=== PATIENT | female | born 1995 | race Caucasian/White ===

== ENCOUNTER 2025-06-04 07:58 | Inpatient (IN) ==
[2025-06-04] MEDS ORDERED: LIDOCAINE 1% LOCAL 20 ML VIAL INFIL PRN (09:03)
[2025-06-04] MEDS ORDERED: OXYTOCIN 30 UNITS/NSS 30 UNITS/500 ML BAG IV PRN ×2 (09:03)
[2025-06-04 09:31] LABS: Hematocrit (blood only) 26.6 % (37.0-47.0); Hemoglobin 9.2 g/dL (12.0-16.0); Mean Corpuscular Hemoglobin 29.1 pg (25.0-34.0); Mean Corpuscular Volume 84.2 fL (80.0-100.0); Platelet Count 202 K/uL (130-400); RDW Standard Deviation 42.3 fL (36.4-46.3); Red Blood Count 3.16 M/uL (4.20-5.40); White Blood Count 10.54 K/ul (4.8-10.8)
--- NOTE | 2025-06-04 09:43 | History & Physical Report ---
Date of Service June 04, 2025 Assessment & Plan (1) Encounter for induction of labor: Plan: Pt is a 29yo at 39w 4d presenting for induction of labor Routine labs ordered Pitocin ordered Epidural placement on demand Monitor tracing Expectant management for labor, anticipate GBS neg Rh negative, Rubella immune Admission and Anticipated Discharge Date Admission Date: June 04, 2025 History of Present Illness Primary Care Provider: NO PCP Pt is a 29yo female currently at 39w 4d with an HARVINDER 06/07/25 who is here for induction of labor. Adequate movement; not feeling contractions, no fluid loss; no bloody show h/o of meth use; last use in second trimester as per pt h/o of marijuana use; last use yesterday as per pt, reapplying for medical M[facility] card Had regular appointments with OB. OB Labs: Blood Type O Negative 04/05/25 Antibody Screen NEGATIVE 04/19/25 Hgb 10.3 g/dl (12.0-16.0) L 04/05/25 Hct 31.1 % (37.0-47.0) L 04/05/25 MCV 90.7 fL (80.0-100.0) 04/05/25 Plt Count 228 K/uL (130-400) 04/05/25 Rubella IgG Antibody Immune (Immune) 04/05/25 Treponema pallidum Ab Negative (Negative) 04/05/25 Hep Bs Antigen Negative (Negative) 04/05/25 Hepatitis C Antibody Negative (Negative) 04/05/25 HIV 1&2 Ab/P24 Ag 4thGn Negative (Negative) 04/05/25 Glucose 1 Hr 50 gm 99 mg/dl (70-130) 04/19/25 Chlamydia trachomatis RNA Not Detected (NotDetected) 04/05/25 Neisseria gonorrhoeae RNA Not Detected (NotDetected) 04/05/25 GBS neg Review of Systems : Denies fever, chills, headache, vision changes, shortness of breath, difficulty breathing, chest pain, palpitations, RUQ/epigastric pain, dysuria Allergies Allergy/AdvReac Type Severity Reaction Status Date / Time No Known Allergies Allergy Unverified 06/03/25 16:17 Home Medications Medication Instructions Recorded Confirmed Type prenat.vits,luisa,gky-tbrk-shjas tab PO DAILY 04/01/25 06/03/25 History Patient History Medical History (Updated 06/04/25 @ 09:48 by Abdullahi Pedraza MD) 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 Marijuana use Marijuana card . Smoker Smokes 10 cigarettes per day. Heart murmur As a baby. No current issues. Anemia No known health problems No pertinent past medical history Surgical History (Updated 06/04/25 @ 08:17 by Sole Thompson, ZEESHAN) No history of previous surgery Family History (Updated 06/04/25 @ 08:17 by Sole Thompson RN) Other No history of previous surgery No known health problems Social History (Updated 06/04/25 @ 08:22 by Sole Thompson, ZEESHAN) Smoking Status: Current every day smoker Tobacco Type: Cigarettes Cigarettes Per Day: 10; Hx Alcohol Use: Yes Alcohol type: wine Alcohol type Comment: 1 month ago Hx Substance Use: Yes Prescribed Medications: Marijuana Prescribed Medications Comment: Marijuana card is no . Non-Prescribed Medications: Marijuana Non-Prescribed Medications Comment: Marijuana use 06/03. Meth use in second tri- mester. Substance Use Type Other:: Meth - Second trismester Marijuana - 06/03/25 Preferred Language: Bur[place]ian Communication Ability: Effective Creative Technologist Required: No Beliefs That Will Affect Care: None marital status: marital status details: Jesus Owen (28) [phone] Current Living Situation: Spouse Current Living Situation Comment: lives with Jesus 3 jesenia current occupational status: unemployed current occupation: Homemaker Other Information That Helps Us Care for You: No Feels Safe at Home: Yes Diet: regular Assistive Devices: None Physical Exam Physical Exam: GA: no apparent distress RESP: normal respiratory effort ABD/: gravid abdomen NEURO: no focal deficits, alert and oriented PSYCH: normal mood and affect FHT: 140bpm, accelerations present, rare contractions Results & Data Vital Signs (Past 12 Hours) Vital Signs Pulse Resp BP 06/04/25 08:25 125 H 20 119/74 06/04/25 08:16 125 H 119/74 Supervising Physician Co-Signing Physician Notes Resident Physician Supervision Note: I interviewed and examined the patient. Discussed with Dr. Pedraza and agree with findings and plan as documented in the note. Any exceptions or clarifications are listed here: 29yo @ 39 4/7, elective IOL, late care, drug use, Rh negative. Attempted to place powell bulb, unable to tolerate speculum exam to get to cervix - therefore 25mcg cytotec placed in vagina. , T Cat 1, rare ctx. OK for epidural when she desires. Documented By: Sobia Pennington, DO Resident Activity Tracking Resident Involvement: Resident Care Provided Care Provided: OB Delivery
[2025-06-04 09:45] LABS: Amphetamines+Metham, Urine Neg (Neg); MDMA (Ecstacy), Urine Neg (Neg); Marijuana, Urine Neg (Neg)
[2025-06-04] MEDS ORDERED: SODIUM CHLORIDE 0.9% 100 ML IV PRN (10:48)
[2025-06-04] MEDS: LACTATED RINGER'S 1,000 ML IV PRN (11:23)
[2025-06-04] MEDS: ACETAMINOPHEN 500 MG TAB PO PRN (15:33)
[2025-06-04] MEDS: NICOTINE 14 MG/24 HR PATCH TD SCH (15:34)
--- NOTE | 2025-06-04 15:48 | Labor Progress Brief Note ---
Date of Service June 04, 2025 Subjective Feeling 2/10 pressure with ctx. FHT Cat 1 [place] rare SVE /-1 Pt is hungry, will allow to eat and then start pitocin. Nicotine patch ordered. Assessment & Plan Admission and Anticipated Discharge Date Admission Date: June 04, 2025 Results & Data Vital Signs (Past 12 Hours) Vital Signs Temp Pulse Resp BP 06/04/25 15:06 86 124/74 06/04/25 15:05 20 06/04/25 15:05 36.9 C 20 06/04/25 10:55 36.4 C L 96 H 20 120/78 06/04/25 08:25 125 H 20 119/74 06/04/25 08:16 125 H 119/74 Coding Level of Care Code None
--- NOTE | 2025-06-04 16:49 | Anesthesiology Consultation ---
Date of Service June 04, 2025 Assessment & Plan (1) Encounter for pre-operative examination: Chart Review Chart Review: Acceptable Risk for Labor Epidural History Height/Weight Height: 5 ft 6 in Weight: 78.471 kg Allergies Allergy/AdvReac Type Severity Reaction Status Date / Time No Known Allergies Allergy Unverified 06/03/25 16:17 Medications Home Medications Medication Instructions Recorded Confirmed Last Taken prenat.vits,luisa,bsk-fuzu-kmskq tab PO DAILY 04/01/25 06/03/25 05/28/25 Active Medications Generic Name Dose Route Start Last Admin Trade Name Freq PRN Reason Stop Dose Admin Acetaminophen 1,000 mg 06/04/25 15:10 06/04/25 15:33 Acetaminophen 500 Mg Tab PO 07/04/25 15:09 1,000 mg Q8H PRN Administration Pain Lactated Ringer's 1,000 mls @ 125 mls/hr 06/04/25 09:03 06/04/25 16:46 Lr IV 06/06/25 09:02 999 mls/hr .Q8H PRN Administration L&D Protocol Protocol Nicotine 1 patch 06/04/25 15:15 06/04/25 15:34 Nicotine 14 Mg/24 Hr Patch TD 07/04/25 15:14 1 patch QAM UDAY Administration Past Medical History Medical History 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 Marijuana use Marijuana card . Smoker Smokes 10 cigarettes per day. Heart murmur As a baby. No current issues. Anemia No known health problems No pertinent past medical history Past Family History Family History Other No history of previous surgery No known health problems Past Surgical History Surgical History No history of previous surgery Social History Smoking Status: Current every day smoker Smoking cigarettes per day: 10 Hx Alcohol Use: Yes Alcohol type: wine Hx Substance Use: Yes substance use type: marijuana and methamphetamine Substance Use Type Other:: Meth - Second trismester Marijuana - 06/03/25 Physical Exam Vital Signs Last Vital Signs Temp 36.9 C 06/04/25 15:05 Pulse 92 H 06/04/25 16:42 Resp 18 06/04/25 16:22 BP 133/85 06/04/25 16:22 Pulse Ox 99 06/04/25 16:42 Testing Laboratory Results 06/04/25 09:11 Blood Type O Negative 06/04/25 09:11 Antibody Screen NEGATIVE 06/04/25 09:11
[2025-06-04] MEDS: LIDOCAINE 2%/EPINEPHRINE 1:200,000 20 ML PF ONE (17:06)
[2025-06-04] MEDS: BUPIVACAINE 0.25% PF 30 ML VIAL ONE (17:06)
[2025-06-04] MEDS: fentANYL 2 MCG/ML BUPIVacaine 0.125%-NSS 100ML BAG ONE (17:07)
[2025-06-04] MEDS ORDERED: BUPIVACAINE 0.25% PF 30 ML VIAL EPI PRN (17:11)
[2025-06-04] MEDS ORDERED: NALOXONE HCL 0.4 MG/1 ML VIAL/CARP IV PRN (17:11)
[2025-06-04] MEDS ORDERED: NALOXONE HCL 1 MG in SODIUM CHLORIDE 0.9% 1,000 ML IV PRN (17:11)
[2025-06-04] MEDS ORDERED: ROPIVACAINE 0.5% PF 5 MG/ML 20 ML VIAL EPI PRN (17:11)
[2025-06-04] MEDS ORDERED: SODIUM CHLORIDE 0.9% PF INJ 10 ML VIAL EPI PRN (17:11)
[2025-06-04] MEDS ORDERED: fentANYL 2 MCG/ML BUPIVacaine 0.125%-NSS 100ML BAG EPI PRN (17:11)
[2025-06-04] MEDS ORDERED: LIDOCAINE 2% MPF LOCAL 5 ML VIAL EPI PRN (17:11)
[2025-06-04] MEDS: ONDANSETRON INJ 2 MG/ML 2 ML VIAL IV PRN (17:39)
[2025-06-04] MEDS: SODIUM CHLORIDE 0.9% PF INJ 10 ML VIAL ONE (17:43)
[2025-06-04] MEDS ORDERED: NURSING L&D Epidural Breakthrough Pain Update ONE (18:18)
[2025-06-04] MEDS: BUPIVACAINE 0.25% PF 30 ML VIAL EPI STA (18:32)
[2025-06-04] MEDS: SODIUM CHLORIDE 0.9% PF INJ 10 ML VIAL EPI STA (18:32)
[2025-06-04] MEDS: LIDOCAINE 2%/EPINEPHRINE 1:200,000 20 ML PF EPI STA (18:32)
[2025-06-04] MEDS ORDERED: ROPIVACAINE 0.5% 5 MG/ML 30 ML VIAL ONE (18:34)
[2025-06-04] MEDS ORDERED: LIDOCAINE 2%/EPINEPHRINE 1:200,000 20 ML PF ONE (18:34)
--- NOTE | 2025-06-04 18:39 | Anesthesia Procedure Note ---
Date of Service June 04, 2025 Anesthesia Epidural Re-Dose Vital Signs Temp Pulse Resp BP Pulse Ox 36.4 C L 101 H 18 129/73 96 06/04/25 17:19 06/04/25 18:36 06/04/25 18:01 06/04/25 18:36 06/04/25 18:33 Notes Pain Intensity: 7 Dilatation (cm): 6.0 Effacement (%): 90 Called by nursing to evaluate epidural as the patient is having increased pain. The epidural was re-dosed with the following medications (all medications via epidural route) after negative aspiration of the epidural catheter for CSF/HEME 1.2% lidocaine and 0.2% ropivacaine 6ml then as pain improved and was worse lower then sat her up some and added 4ml. After Epidural Re-Dose Mental Status: alert / awake / arousable Pain: improving with treatment Airway Patency, RR, SpO2: stable & adequate BP & HR: stable & adequate
--- NOTE | 2025-06-04 22:18 | Labor Progress Brief Note ---
Date of Service June 04, 2025 Subjective Pressure with ctx. FHT Cat 1 Q2 10/100/+3, actively pushing. Continue pushing. Assessment & Plan Admission and Anticipated Discharge Date Admission Date: June 04, 2025 Results & Data Vital Signs (Past 12 Hours) Vital Signs Temp Pulse Resp BP Pulse Ox 06/04/25 22:13 138 H 99 06/04/25 22:08 144 H 100 06/04/25 22:03 123 H 98 06/04/25 21:58 129 H 97 06/04/25 21:56 123 H 109/56 L 06/04/25 21:53 124 H 97 06/04/25 21:48 125 H 97 06/04/25 21:43 124 H 97 06/04/25 21:41 117 H 111/62 06/04/25 21:38 123 H 98 06/04/25 21:33 115 H 99 06/04/25 21:30 18 06/04/25 21:30 18 06/04/25 21:28 122 H 97 06/04/25 21:25 120 H 111/55 L 06/04/25 21:23 119 H 98 06/04/25 21:18 138 H 100 06/04/25 21:13 124 H 98 06/04/25 21:10 125 H 106/57 L 06/04/25 21:08 124 H 99 06/04/25 21:03 117 H 97 06/04/25 21:00 18 06/04/25 21:00 18 06/04/25 20:58 131 H 98 06/04/25 20:57 36.7 C 117 H 18 104/54 L 06/04/25 20:53 128 H 97 06/04/25 20:48 118 H 98 06/04/25 20:43 116 H 98 06/04/25 20:41 131 H 92/62 L 06/04/25 20:38 119 H 98 06/04/25 20:33 142 H 97 06/04/25 20:30 18 06/04/25 20:30 18 06/04/25 20:28 149 H 99 06/04/25 20:25 118 H 117/58 L 06/04/25 20:24 110 H 94 06/04/25 20:23 134 H 95 06/04/25 20:18 95 06/04/25 20:18 121 H 06/04/25 20:18 121 H 94 06/04/25 20:13 125 H 95 06/04/25 20:10 127 H 103/55 L 06/04/25 20:08 127 H 96 06/04/25 20:03 139 H 96 06/04/25 20:00 18 06/04/25 20:00 18 06/04/25 19:58 128 H 97 06/04/25 19:56 130 H 106/52 L 06/04/25 19:53 112 H 96 06/04/25 19:48 118 H 95 06/04/25 19:43 138 H 96 06/04/25 19:42 123 H 101/55 L 06/04/25 19:38 118 H 96 06/04/25 19:33 115 H 96 06/04/25 19:30 18 06/04/25 19:30 18 06/04/25 19:28 127 H 97 06/04/25 19:26 131 H 110/58 L 06/04/25 19:23 125 H 99 06/04/25 19:18 154 H 100 06/04/25 19:13 118 H 98 06/04/25 19:11 36.9 C 131 H 18 133/68 06/04/25 19:08 125 H 99 06/04/25 19:03 112 H 98 06/04/25 18:58 120 H 98 06/04/25 18:55 113 H 126/64 06/04/25 18:53 104 H 100 06/04/25 18:48 118 H 99 06/04/25 18:43 102 H 97 06/04/25 18:40 100 H 139/81 06/04/25 18:38 96 H 98 06/04/25 18:36 101 H 129/73 06/04/25 18:33 92 H 96 06/04/25 18:31 118 H 92 06/04/25 18:30 105 H 135/80 06/04/25 18:28 98 H 98 06/04/25 18:25 100 H 138/82 06/04/25 18:23 100 H 98 06/04/25 18:22 104 H 92 06/04/25 18:20 97 H 142/82 H 06/04/25 18:18 100 H 98 06/04/25 18:15 95 H 136/84 06/04/25 18:13 91 H 99 06/04/25 18:11 99 H 149/86 H 06/04/25 18:08 100 06/04/25 18:08 120 H 06/04/25 18:08 112 H 89 L 06/04/25 18:05 115 H 108/56 L 06/04/25 18:03 113 H 98 06/04/25 18:01 113 H 18 134/70 06/04/25 17:58 108 H 99 06/04/25 17:56 114 H 116/71 06/04/25 17:53 110 H 20 100 06/04/25 17:51 111 H 124/72 06/04/25 17:48 113 H 99 06/04/25 17:45 113 H 120/60 06/04/25 17:43 111 H 99 06/04/25 17:40 118 H 20 122/61 06/04/25 17:39 117 H 90 06/04/25 17:38 119 H 99 06/04/25 17:33 115 H 100 06/04/25 17:31 110 H 92 06/04/25 17:30 109 H 20 114/66 06/04/25 17:28 108 H 99 06/04/25 17:26 104 H 20 122/55 L 06/04/25 17:25 108 H 83 L 06/04/25 17:23 108 H 99 06/04/25 17:19 20 06/04/25 17:19 36.4 C L 20 06/04/25 17:19 106 H 06/04/25 17:19 97 H 20 107/57 L 88 L 06/04/25 17:18 99 H 96 06/04/25 17:17 102 H 18 115/58 L 06/04/25 17:15 107 H 122/62 06/04/25 17:13 106 H 18 124/62 99 06/04/25 17:11 106 H 131/63 06/04/25 17:09 97 H 18 117/55 L 06/04/25 17:08 108 H 100 06/04/25 17:07 99 H 120/58 L 06/04/25 17:05 100 H 18 118/57 L 06/04/25 17:03 105 H 128/74 99 06/04/25 17:02 96 H 86 L 06/04/25 17:01 101 H 18 121/64 06/04/25 16:58 108 H 99 06/04/25 16:55 110 H 91 06/04/25 16:53 116 H 100 06/04/25 16:48 98 H 100 06/04/25 16:42 99 06/04/25 16:42 92 H 06/04/25 16:42 100 H 91 06/04/25 16:37 101 H 100 06/04/25 16:33 95 H 86 L 06/04/25 16:32 93 H 100 06/04/25 16:26 98 H 100 06/04/25 16:22 110 H 18 133/85 06/04/25 16:21 103 H 99 06/04/25 15:06 86 124/74 06/04/25 15:05 20 06/04/25 15:05 36.9 C 20 06/04/25 10:55 36.4 C L 96 H 20 120/78 Coding Level of Care Code None
[2025-06-04] MEDS: OXYTOCIN 30 UNITS/NSS 30 UNITS/500 ML BAG IV PRN (22:33)
--- NOTE | 2025-06-04 22:42 | Delivery Summary ---
Vaginal Delivery Summary Date of Service June 04, 2025 Vaginal Delivery Summary [facility] Vaginal Delivery Summary: Pre-delivery diagnoses: 29yo @ 39 4/7, elective IOL, Rh negative, maternal drug use Post-delivery diagnoses: same Procedure: spontaneous vaginal delivery Surgeon: Sobia Pennington DO Complications: none Findings: Viable female . Apgars: 7/9 . Weight pending, please see nursery records Estimated QBL: 262cc Description of delivery: The patient progressed to complete with epidural anesthesia. She then began to push. She spontaneously vaginally delivered a viable from the cephalic presentation. The head delivered in ADRIANA posit ion. The anterior shoulder delivered, followed by the posterior shoulder, followed by the body. The baby was placed on mother's abdomen and a spontaneous cry was heard. Delayed cord clamping was employed, and the cord was doubly clamped and cut. Cord blood was obtained. The placenta was delivered spontaneously intact with a 3-vessel cord. The uterus and vagina were swept of clots and debris. IV pitocin was given. The uterus became firm. The cervix, vagina, and perineum were inspected and no lacerations were noted. Excellent hemostasis was observed. The mother and baby are recovering in stable and good condition in the room. Sponge and instrument counts were correct x 2. Sobia Pennington DO [facility] Vaginal Delivery Charge Vaginal Delivery Codes: 41810 global code for the antepartum, delivery, and post- Delivery Type Details: [facility]
[2025-06-05] MEDS ORDERED: HYDROCORTISONE ACETATE 25 MG SUPP PR PRN (00:01)
[2025-06-05] MEDS ORDERED: BENZOCAINE 20% SPRY 85 APPLN/85 GM CAN EXT PRN (00:01)
[2025-06-05] MEDS: IBUPROFEN 600 MG TAB PO PRN (03:05)
--- NOTE | 2025-06-05 04:55 | Anesthesia Procedure Note ---
Date of Service June 05, 2025 Anesthesia Post Epidural Note Vital Signs Vital Signs: Temp Pulse Resp BP Pulse Ox O2 Del Method 36.7 C 55 L 18 111/66 99 Room Air 06/05/25 03:00 06/05/25 03:00 06/05/25 03:00 06/05/25 03:00 06/05/25 03:00 06/05/25 03:00 Pain Intensity Bilateral Abdomen: Pain Intensity: 0 Head: Pain Intensity: 3 Notes Mental Status: alert / awake / arousable and participated in evaluation Nausea / Vomiting: adequately controlled Pain: adequately controlled Airway Patency, RR, SpO2: stable & adequate BP & HR: stable & adequate Hydration State: stable & adequate Neuraxial Anesthesia: was administered and sensory block is resolving Anesthetic Complications: no major complications apparent Epidural: Removed without complications and With tip intact
[2025-06-05 06:38] LABS: Hematocrit (blood only) 23.0 % (37.0-47.0); Hemoglobin 7.8 g/dL (12.0-16.0)
--- NOTE | 2025-06-05 06:38 | Obstetrical Progress Note ---
Date of Service June 05, 2025 Assessment & Plan (1) care and examination: Plan: 29yo post- day 1 s/p Fells well today Continue post- care Encourage ambulation and and bottle feeding Pain controlled Vital Signs and hemoglobin stable Rh neg, baby Rh +, needs Rhogam Anticipate discharge tomorrow Admission and Anticipated Discharge Date Admission Date: June 04, 2025 Supervising Physician Co-Signing Physician Notes Resident Physician Supervision Note: I interviewed and examined the patient. Discussed with Dr. Pedraza and agree with findings and plan as documented in the note. Any exceptions or clarifications are listed here: PPD#1 doing well. Routine care. Documented By: Sobia Pennington, DO Subjective 29yo post- day 1 s/p Ambulation: Ambulating normally Voiding: No voiding problems Passing Gas:: Yes Diet Tolerance:: regular diet Lochia:: Small Feeding Type:: breast and bottle feeding Pain controlled Resting comfortably this AM in NAD. Denies KNUTSON, CP, SOB, N/V/D, LE pain/swelling. Physical Exam Physical Exam: General: patient resting comfortably, NAD, non-toxic in appearance, answers questions appropriately Skin: warm, dry, intact Heart: S1/S2 heard, regular, no m/r/g Lungs: equal air entry bilaterally, no rales/rhonchi/wheezes Abd: soft, NT/ND, uterine fundus firm 1cm umbilicus Ext: warm, no clubbing/cyanosis or edema Neuro: nonfocal, patient AAOx4, speech intact, no facial droop, moving all extremities on command Results & Data Vital Signs (Past 12 Hours) Vital Signs Temp Pulse Pulse Resp BP BP Pulse Ox 06/05/25 03:00 36.7 C 55 L 18 111/66 99 06/05/25 01:00 36.7 C 96 H 18 124/80 99 06/05/25 00:41 129 H 140/81 06/05/25 00:40 36.9 C 18 06/05/25 00:11 113 H 122/70 06/04/25 23:56 110 H 133/83 06/04/25 23:41 111 H 140/88 06/04/25 23:26 112 H 129/81 06/04/25 23:23 18 06/04/25 23:11 116 H 126/60 06/04/25 23:10 18 06/04/25 22:56 123 H 156/61 H 06/04/25 22:41 126 H 146/65 H 06/04/25 22:40 36.8 C 18 06/04/25 22:33 140 H 98 06/04/25 22:28 173 H 97 06/04/25 22:26 84 139/110 H 06/04/25 22:24 158 H 92 06/04/25 22:23 149 H 97 06/04/25 22:18 154 H 89 L 06/04/25 22:15 18 06/04/25 22:15 18 06/04/25 22:13 138 H 99 06/04/25 22:08 144 H 100 06/04/25 22:03 123 H 98 06/04/25 22:00 18 06/04/25 22:00 18 06/04/25 21:58 129 H 97 06/04/25 21:56 123 H 109/56 L 06/04/25 21:53 124 H 97 06/04/25 21:48 125 H 97 06/04/25 21:43 124 H 97 06/04/25 21:41 117 H 111/62 06/04/25 21:38 123 H 98 06/04/25 21:33 115 H 99 06/04/25 21:30 18 06/04/25 21:30 18 06/04/25 21:28 122 H 97 06/04/25 21:25 120 H 111/55 L 06/04/25 21:23 119 H 98 06/04/25 21:18 138 H 100 06/04/25 21:13 124 H 98 06/04/25 21:10 125 H 106/57 L 06/04/25 21:08 124 H 99 06/04/25 21:03 117 H 97 06/04/25 21:00 18 06/04/25 21:00 18 06/04/25 20:58 131 H 98 06/04/25 20:57 36.7 C 117 H 18 104/54 L 06/04/25 20:53 128 H 97 06/04/25 20:48 118 H 98 06/04/25 20:43 116 H 98 06/04/25 20:41 131 H 92/62 L 06/04/25 20:38 119 H 98 06/04/25 20:33 142 H 97 06/04/25 20:30 18 06/04/25 20:30 18 06/04/25 20:28 149 H 99 06/04/25 20:25 118 H 117/58 L 06/04/25 20:24 110 H 94 06/04/25 20:23 134 H 95 06/04/25 20:18 95 06/04/25 20:18 121 H 06/04/25 20:18 121 H 94 06/04/25 20:13 125 H 95 06/04/25 20:10 127 H 103/55 L 06/04/25 20:08 127 H 96 06/04/25 20:03 139 H 96 06/04/25 20:00 18 06/04/25 20:00 18 06/04/25 19:58 128 H 97 06/04/25 19:56 130 H 106/52 L 06/04/25 19:53 112 H 96 06/04/25 19:48 118 H 95 06/04/25 19:43 138 H 96 06/04/25 19:42 123 H 101/55 L 06/04/25 19:38 118 H 96 06/04/25 19:33 115 H 96 06/04/25 19:30 18 06/04/25 19:30 18 06/04/25 19:28 127 H 97 06/04/25 19:26 131 H 110/58 L 06/04/25 19:23 125 H 99 06/04/25 19:18 154 H 100 06/04/25 19:13 118 H 98 06/04/25 19:11 36.9 C 131 H 18 133/68 06/04/25 19:08 125 H 99 06/04/25 19:03 112 H 98 06/04/25 18:58 120 H 98 06/04/25 18:55 113 H 126/64 06/04/25 18:53 104 H 100 06/04/25 18:48 118 H 99 06/04/25 18:43 102 H 97 06/04/25 18:40 100 H 139/81 06/04/25 18:38 96 H 98 06/04/25 18:36 101 H 129/73 O2 Del Method 06/05/25 03:00 Room Air 06/05/25 01:00 Room Air 06/05/25 00:41 06/05/25 00:40 06/05/25 00:11 06/04/25 23:56 06/04/25 23:41 06/04/25 23:26 06/04/25 23:23 06/04/25 23:11 06/04/25 23:10 06/04/25 22:56 06/04/25 22:41 06/04/25 22:40 06/04/25 22:33 06/04/25 22:28 06/04/25 22:26 06/04/25 22:24 06/04/25 22:23 06/04/25 22:18 06/04/25 22:15 06/04/25 22:15 06/04/25 22:13 06/04/25 22:08 06/04/25 22:03 06/04/25 22:00 06/04/25 22:00 06/04/25 21:58 06/04/25 21:56 06/04/25 21:53 06/04/25 21:48 06/04/25 21:43 06/04/25 21:41 06/04/25 21:38 06/04/25 21:33 06/04/25 21:30 06/04/25 21:30 06/04/25 21:28 06/04/25 21:25 06/04/25 21:23 06/04/25 21:18 06/04/25 21:13 06/04/25 21:10 06/04/25 21:08 06/04/25 21:03 06/04/25 21:00 06/04/25 21:00 06/04/25 20:58 06/04/25 20:57 06/04/25 20:53 06/04/25 20:48 06/04/25 20:43 06/04/25 20:41 06/04/25 20:38 06/04/25 20:33 06/04/25 20:30 06/04/25 20:30 06/04/25 20:28 06/04/25 20:25 06/04/25 20:24 06/04/25 20:23 06/04/25 20:18 06/04/25 20:18 06/04/25 20:18 06/04/25 20:13 06/04/25 20:10 06/04/25 20:08 06/04/25 20:03 06/04/25 20:00 06/04/25 20:00 06/04/25 19:58 06/04/25 19:56 06/04/25 19:53 06/04/25 19:48 06/04/25 19:43 06/04/25 19:42 06/04/25 19:38 06/04/25 19:33 06/04/25 19:30 06/04/25 19:30 06/04/25 19:28 06/04/25 19:26 06/04/25 19:23 06/04/25 19:18 06/04/25 19:13 06/04/25 19:11 06/04/25 19:08 06/04/25 19:03 06/04/25 18:58 06/04/25 18:55 06/04/25 18:53 06/04/25 18:48 06/04/25 18:43 06/04/25 18:40 06/04/25 18:38 06/04/25 18:36 Resident Activity Tracking Resident Involvement: Resident Care Provided Care Provided: OB Delivery
[2025-06-05] MEDS: PRENATAL VITAMIN 1 TAB PO SCH (09:01)
[2025-06-05] MEDS: DOCUSATE SODIUM 100 MG CAP PO SCH (09:01)
[2025-06-05] MEDS: REMOVE NICODERM PATCH SCH (09:11)
[2025-06-05] MEDS: ACETAMINOPHEN 325 MG TAB PO PRN (11:30)
[2025-06-05] MEDS: DIPHTHER/TETAN/PERTUS Vaccine (Tdap, Adol/Adult) 0.5mL IM ONE (14:35)
[2025-06-05 21:29] VITALS: RESP 18; TEMP 97.5
[2025-06-05 23:32] VITALS: O2SAT 100
--- NOTE | 2025-06-06 07:51 | Obstetrical Progress Note ---
Date of Service June 06, 2025 Assessment & Plan (1) care and examination: Plan Doing well. Plan d/c. Instructions given. f/u in 6 weeks. Day #:: 2 Subjective Ambulation: ambulating normally Voiding: no voiding problems Passing Gas:: Yes Diet Tolerance:: regular diet Lochia:: Small Feeding Type:: bottle feeding Feeling well. Desires d/c today. Physical Exam Constitutional WD/WN, vitals as above Respiratory normal respiratory effort, lungs clear to auscultation Cardiovascular RRR, no murmur, no edema Extremities: no calf tenderness and no edema Gastrointestinal (Abdomen) soft, nt, nd ff/nt 2 below u Psychiatric A+Ox3, euthymic affect Results & Data Vital Signs (Past 12 Hours) Vital Signs Temp Pulse Resp BP Pulse Ox O2 Del Method 06/05/25 23:30 36.4 C L 86 18 115/76 100 Room Air 06/05/25 20:25 36.4 C L 88 18 114/71 97 Room Air
[2025-06-06 08:07] VITALS: BP 122/82
[2025-06-06 08:10] VITALS: PULSE 81
== END 2025-06-06 11:00 | disposition home or self-care (01) | DRG 807 ==
LOC: 4S1 07:58 → 4E2 06-05 01:22